=== PATIENT | male | born 1975 | race Caucasian/White ===

== ENCOUNTER 2017-03-28 07:33 | Outpatient (CLI) | payer MEDICARE ==
[~2017-03-28] VITALS: Ht 175.4 cm; Wt 70.5 kg
[~2017-03-28 07:33] MED LIST: ALDACTONE 25MG25 M1 PO; ASPI325T6 PO; CELEBREX 1100 MG/CAP PO; CELEBREX50 MG PO; COREG12.5 MG; FLEXERIL 1010 MG/TAB; HUMALOG100 U/ML SQ; LANOXIN 0.25M0.25 MG PO; LANTUS100 U/ML SC; LASIX 20MG TABL20 MG PO; LEVEMIR100 U/ML SQ; LIORESAL 1010 MG/TAB PO; NEURONTIN600 MG/TAB PO; NORCO 325 MG-101 TAB PO; NOVOLOG 100U100 U/M1 SC; PERC2.5TAB PO; PERCOCET 325 MG1 TA2 PO; PRAVACHOL 20MG20 MG PO; REGLAN 10MG10 MG/TAB; TYLENOL 325MG325 MG PO; ULTRAM 50MG TAB50 MG; ULTRAM 50MG TAB50 MG PO; ZITHROMAX Z PA250 MG PO
[2017-03-28] MEDS ORDERED: HUMALOG100 U/ML SQ (08:12)
[2017-03-28] MEDS ORDERED: RESTORIL30 MG PO (08:16)
[2017-03-28] MEDS ORDERED: IMDUR 60MG60 MG/TAB PO (08:17)
[2017-03-28] MEDS ORDERED: COZAAR 25MG25 MG/TAB PO (08:17)
[2017-03-28 08:18] VITALS: BP 137/80; PULSE 73; TEMP 97.6
[2017-03-28] MEDS ORDERED: COREG 6.256.25 MG/TA PO (08:18)
== END 2017-03-28 12:20 | disposition home or self-care (01) ==
LOC: COL.CAR 07:33
DX: R55 Syncope and collapse (principal); I25.5 Ischemic cardiomyopathy; I25.10 Atherosclerotic heart disease of native coronary artery without angina pectoris; Z95.5 Presence of coronary angioplasty implant and graft; I50.9 Heart failure, unspecified; E10.65 Type 1 diabetes mellitus with hyperglycemia; E10.42 Type 1 diabetes mellitus with diabetic polyneuropathy; Z79.4 Long term (current) use of insulin; G47.33 Obstructive sleep apnea (adult) (pediatric); Q21.1 Atrial septal defect; Z87.898 Personal history of other specified conditions; Z87.891 Personal history of nicotine dependence; E78.5 Hyperlipidemia, unspecified; I10 Essential (primary) hypertension

== ENCOUNTER → 2017-04-01 | Outpatient (CLI) | payer MEDICARE ==
[~2017-04-01] MED LIST changes: +COREG 6.256.25 MG/TA PO; +COZAAR 25MG25 MG/TAB PO; +FLORINEF ACETA0.1 MG PO; +IMDUR 60MG60 MG/TAB PO; +K-DUR20 MEQ PO; +PHENERGAN 25 TA25 MG PO; +PROTONIX 40MG T40 MG PO; +REGLAN 10MG10 MG/TAB PO; +RESTORIL30 MG PO; +ZOFRAN 4MG T4 MG/TAB PO; +ZOLOFT 100MG100 MG PO
== END ==
LOC: COL.RAD 11:59
DX: R55 Syncope and collapse (principal); F32.9 Major depressive disorder, single episode, unspecified
CPT/HCPCS: A9585

== ENCOUNTER 2017-04-14 08:54 | Inpatient (IN) | payer MEDICARE ==
[2017-04-14] VITALS (705 sets, daily range): BP systolic 139–145; BP diastolic 79–86; PULSE 83–89; TEMP 98.4–99.2; O2SAT 83–100
[~2017-04-14] VITALS: Ht 175.3 cm; Wt 75.2 kg
[~2017-04-14 08:54] MED LIST changes: -FLORINEF ACETA0.1 MG PO; -K-DUR20 MEQ PO; -PHENERGAN 25 TA25 MG PO; -PROTONIX 40MG T40 MG PO; -REGLAN 10MG10 MG/TAB PO; -ZOFRAN 4MG T4 MG/TAB PO; -ZOLOFT 100MG100 MG PO
[2017-04-14 09:14] LABS: HEMOGLOBIN 12.1 g/dl (13.5-18.0); MEAN CELL VOLUME 96 fl (80.0-100.0); MEAN CORPUSCULAR HEMOGLOBIN 32 pg (27.0-31.0); MEAN CORPUSCULAR HGB CONC 33 g/dl (33.0-37.0); MEAN PLATELET VOLUME 10.7 fl (7.4-10.4); PLATELET COUNT 354 K/mm3 (130-400); RED BLOOD COUNT 3.83 M/mm3 (4.20-5.60); REDCELL DISTRIBUTION WIDTH-CV 13.3 % (11.5-14.5); WHITE BLOOD COUNT 16.6 K/mm3 (4.8-10.8)
[2017-04-14 09:16] LABS: HEMATOCRIT 36.9 % (42.0-52.0)
[2017-04-14 09:17] LABS: ADD PATHOLOGY DIFF REVIEW NO; INR 1.1 (0.8-3.0); PROTHROMBIN TIME 11.7 SECONDS (9.7-12.8)
[2017-04-14] MEDS ORDERED: ZOLOFT 100MG100 MG PO (09:18)
[2017-04-14] MEDS ORDERED: NORCO 325 MG-101 TAB PO (09:19)
[2017-04-14] MEDS ORDERED: FLORINEF ACETA0.1 MG PO (09:19)
[2017-04-14] MEDS ORDERED: REGLAN 10MG10 MG/TAB PO (09:20)
[2017-04-14 09:56] LABS: ADJUSTED CALCIUM 8.6 mg/dL (8.4-10.2); ALANINE AMINOTRANSFERASE 26 U/L (21-72); ALBUMIN 4.7 gm/dL (3.5-5.0); ALKALINE PHOSPHATASE 127 U/L (50-136); ANION GAP 21 mmol/L (7-16); BILIRUBIN,TOTAL 1.1 mg/dL (0.0-1.0); BLOOD UREA NITROGEN 15 mg/dL (9-20); CALCIUM 9.2 mg/dL (8.4-10.2); CHLORIDE 104 mmol/L (98-107); CREATININE, serum 0.72 mg/dL (0.66-1.25); GLUCOSE 156 mg/dL (74-106); POTASSIUM 4.2 mmol/L (3.4-5.0); SODIUM 139 mmol/L (137-145); TOTAL PROTEIN 7.8 gm/dL (6.4-8.2)
[2017-04-14 09:57] LABS: BAND 6 % (0-10); CARBON DIOXIDE 13 mmol/L (22-30); NEUTROPHILS 76 % (42.0-75.2); PLATELET ESTIMATE INCREASED (NORMAL); TOTAL CELLS COUNTED 100
[2017-04-14 10:05] LABS: LIPASE 15 U/L (23-300)
[2017-04-14 10:09] LABS: TROPONIN-I < 0.012 ng/mL (0.000-0.034)
[2017-04-14 10:30] LABS: VENOUS BLOOD GAS BE -13.2 (-4-4); VENOUS BLOOD GAS SAO2 75.8 % (60-80)
[2017-04-14 10:31] LABS: VENOUS BLOOD GAS SITE VENIPUNCTURE
[2017-04-14 11:18] LABS: PH 5 (5-8); SQUAMOUS EPITHELIAL None Seen /hpf; URINE APPEARANCE Clear; URINE BACTERIA None Seen /hpf; URINE BILIRUBIN Negative (NEGATIVE); URINE BLOOD Negative (NEGATIVE); URINE COLOR Yellow; URINE GLUCOSE 3+ (NEGATIVE); URINE KETONE 2+ (NEGATIVE); URINE RBC 0-2 /hpf; URINE UROBILINOGEN Negative (NEGATIVE); URINE WBC 0-2 /hpf
[2017-04-14 17:33] LABS: ARTERIAL BLD GAS O2 SATURATION 96.4 % (92-100); ARTERIAL BLD GAS TCO2 CT 11.2; ARTERIAL BLOOD GAS BASE EXCESS -15.5 (-2-2); ARTERIAL BLOOD GAS HCO3 10.4 meq/L (22-26); ARTERIAL BLOOD GAS PHT 7.23 C (7.35-7.45); ARTERIAL BLOOD GAS PO2 100.6 mmHg (80-100); ARTERIAL BLOOD GAS PO2T 100.6 (80-100); ARTERIAL BLOOD GAS pH 7.23 (7.35-7.45)
[2017-04-14 17:34] LABS: ATS? YES
[2017-04-15] VITALS (624 sets, daily range): BP systolic 95–184; BP diastolic 50–94; PULSE 71–87; TEMP 97.3–98.8; O2SAT 91–100
[2017-04-15 00:23] LABS: CREATININE, serum 0.65 mg/dL (0.66-1.25)
[2017-04-15 05:39] LABS: MEAN CELL VOLUME 98 fl (80.0-100.0); MEAN CORPUSCULAR HGB CONC 32 g/dl (33.0-37.0); MEAN PLATELET VOLUME 10.5 fl (7.4-10.4); PLATELET COUNT 300 K/mm3 (130-400); RED BLOOD COUNT 3.54 M/mm3 (4.20-5.60); REDCELL DISTRIBUTION WIDTH-CV 13.9 % (11.5-14.5); WHITE BLOOD COUNT 11.8 K/mm3 (4.8-10.8)
[2017-04-15 05:44] LABS: HEMATOCRIT 34.6 % (42.0-52.0); HEMOGLOBIN 11.1 g/dl (13.5-18.0); MEAN CORPUSCULAR HEMOGLOBIN 31 pg (27.0-31.0)
[2017-04-15 05:47] LABS: ADJUSTED CALCIUM 8.7 mg/dL (8.4-10.2); ALBUMIN 3.4 gm/dL (3.5-5.0); BILIRUBIN,TOTAL 0.9 mg/dL (0.0-1.0); CALCIUM 8.2 mg/dL (8.4-10.2); CREATININE, serum 0.58 mg/dL (0.66-1.25); POTASSIUM 3.9 mmol/L (3.4-5.0); TOTAL PROTEIN 5.9 gm/dL (6.4-8.2)
[2017-04-16 03:36] VITALS: BP 161/99; PULSE 84; TEMP 98.4
[2017-04-16 07:40] VITALS: BP 128/68; PULSE 81; TEMP 98.1
[2017-04-16 08:14] LABS: BASO % 0.2 % (0.0-2.0); GRAN # 7.5 (1.4-6.5); GRAN % 79.3 % (42.2-75.2); LYMPH # 1.2 (1.2-3.4); LYMPH % 12.2 % (20.0-51.0); MEAN CELL VOLUME 95 fl (80.0-100.0); MEAN CORPUSCULAR HGB CONC 33 g/dl (33.0-37.0); MEAN PLATELET VOLUME 11.3 fl (7.4-10.4); MONO # 0.7 (0.1-0.6); MONO % 7.1 % (1.7-9.3); PLATELET COUNT 264 K/mm3 (130-400); RED BLOOD COUNT 3.28 M/mm3 (4.20-5.60); REDCELL DISTRIBUTION WIDTH-CV 14.2 % (11.5-14.5); WHITE BLOOD COUNT 9.4 K/mm3 (4.8-10.8)
[2017-04-16 08:21] LABS: CALCIUM 7.9 mg/dL (8.4-10.2); CREATININE, serum 0.53 mg/dL (0.66-1.25); MAGNESIUM 1.8 mg/dL (1.6-2.3); POTASSIUM 3.2 mmol/L (3.4-5.0)
[2017-04-16 08:28] LABS: HEMATOCRIT 31.3 % (42.0-52.0); HEMOGLOBIN 10.3 g/dl (13.5-18.0); MEAN CORPUSCULAR HEMOGLOBIN 31 pg (27.0-31.0)
[2017-04-16 11:34] VITALS: BP 179/92; PULSE 81; TEMP 97.2
[2017-04-16 16:26] VITALS: BP 134/69; PULSE 72; TEMP 98.1
[2017-04-16 20:46] VITALS: BP 123/71; PULSE 69; TEMP 98.7
[2017-04-16 23:56] VITALS: BP 145/78; PULSE 65; TEMP 98.2
[2017-04-17 05:16] VITALS: BP 171/90; PULSE 72; TEMP 98.6
[2017-04-17 08:06] VITALS: BP 145/73; PULSE 72; TEMP 99
[2017-04-17 08:16] LABS: BASO % 0.2 % (0.0-2.0); EOS # 0.1 (0.0-0.7); EOS % 1.3 % (0-4.0); GRAN # 6.7 (1.4-6.5); GRAN % 67.7 % (42.2-75.2); LYMPH % 19.9 % (20.0-51.0); MEAN CELL VOLUME 95 fl (80.0-100.0); MEAN CORPUSCULAR HGB CONC 33 g/dl (33.0-37.0); MEAN PLATELET VOLUME 11.1 fl (7.4-10.4); MONO % 10.1 % (1.7-9.3); PLATELET COUNT 242 K/mm3 (130-400); RED BLOOD COUNT 3.27 M/mm3 (4.20-5.60); REDCELL DISTRIBUTION WIDTH-CV 14.1 % (11.5-14.5); WHITE BLOOD COUNT 9.9 K/mm3 (4.8-10.8)
[2017-04-17 08:28] LABS: HEMOGLOBIN 10.3 g/dl (13.5-18.0); MEAN CORPUSCULAR HEMOGLOBIN 31 pg (27.0-31.0)
[2017-04-17 08:43] LABS: CALCIUM 7.7 mg/dL (8.4-10.2); CREATININE, serum 0.55 mg/dL (0.66-1.25); POTASSIUM 3.2 mmol/L (3.4-5.0)
[2017-04-17 11:05] VITALS: BP 140/68; PULSE 68; TEMP 97.7
[2017-04-17 15:20] VITALS: BP 161/71; PULSE 70; TEMP 98.4
[2017-04-17 20:04] VITALS: BP 178/88; BP 182/90; PULSE 71; TEMP 98.8
[2017-04-17 23:32] VITALS: BP 106/50; PULSE 72; TEMP 99.3
[2017-04-18 03:35] VITALS: BP 136/77; PULSE 64; TEMP 98.7
[2017-04-18 07:23] LABS: CALCIUM 8.4 mg/dL (8.4-10.2); CREATININE, serum 0.55 mg/dL (0.66-1.25); POTASSIUM 3.1 mmol/L (3.4-5.0)
[2017-04-18 07:32] VITALS: BP 157/79; PULSE 74; TEMP 99
[2017-04-18] MEDS ORDERED: LEVEMIR100 U/ML SQ (10:35)
[2017-04-18] MEDS ORDERED: ZOFRAN 4MG T4 MG/TAB PO (10:36)
[2017-04-18] MEDS ORDERED: PHENERGAN 25 TA25 MG PO (10:36)
[2017-04-18] MEDS ORDERED: ZITHROMAX Z PA250 MG PO (10:37)
[2017-04-18] MEDS ORDERED: K-DUR20 MEQ PO (10:38)
[2017-04-18] MEDS ORDERED: PROTONIX 40MG T40 MG PO (10:41)
== END 2017-04-18 11:23 | disposition home or self-care (01) | DRG 391 ==
LOC: COL.ER 08:54 → ICU 10:40 → MEDICAL 10:40
PROVIDERS: Emergency Medicine; Family Medicine; Internal Medicine Cardiovascular Disease; Internal Medicine Gastroenterology; Physician Assistant
PROC: 0DJ08ZZ Inspection of Upper Intestinal Tract, Via Natural or Artificial Opening Endoscopic (ICD-10-PCS; principal; 2017-04-15 14:45)
DX: K52.9 Noninfective gastroenteritis and colitis, unspecified (principal); J18.9 Pneumonia, unspecified organism; I50.32 Chronic diastolic (congestive) heart failure; E87.6 Hypokalemia; K29.70 Gastritis, unspecified, without bleeding; E10.65 Type 1 diabetes mellitus with hyperglycemia; E10.42 Type 1 diabetes mellitus with diabetic polyneuropathy; I11.0 Hypertensive heart disease with heart failure; Z95.1 Presence of aortocoronary bypass graft; Z79.4 Long term (current) use of insulin; Z87.891 Personal history of nicotine dependence; I25.119 Atherosclerotic heart disease of native coronary artery with unspecified angina pectoris; K21.9 Gastro-esophageal reflux disease without esophagitis
CPT/HCPCS: 99223-AI; 99232-AI; 99233-AI; 99239; A9541; C9113; J0360; J1644; J1815; J2250; J2270; J2405; J2550; J2704; J2765; J3010; J3480; J7030; Q9967

== ENCOUNTER 2018-03-19 14:10 | Emergency (ER) | payer MEDICARE ==
[~2018-03-19] VITALS: Ht 175.3 cm; Wt 75.0 kg
[~2018-03-19 14:10] MED LIST changes: +Bentyl PO; +COREG12.5 MG PO; +COZAAR 50MG50 MG/TAB PO; +FLORINEF ACETA0.1 MG PO; +K-DUR20 MEQ PO; +NOVOLOG 100U100 U/M1 SQ; +PHENERGAN 25 TA25 MG PO; +PROTONIX 40MG T40 MG PO; +REGLAN 10MG10 MG/TAB PO; +ZOFRAN 4MG T4 MG/TAB PO; +ZOLOFT 100MG100 MG PO
[2018-03-19 14:13] VITALS: BP 94/55; PULSE 77; TEMP 97.6
[2018-03-19] MEDS ORDERED: LEVEMIR100 U/ML SQ (14:26)
[2018-03-19] MEDS ORDERED: NOVOLOG 100U100 U/M1 SQ (14:27)
[2018-03-19] MEDS ORDERED: COREG 6.256.25 MG/TA PO (14:28)
[2018-03-19] MEDS ORDERED: ALDACTONE 25MG25 M1 PO (14:30)
== END 2018-03-19 15:42 | disposition home or self-care (01) ==
LOC: COL.ER 14:10
DX: S09.90XA Unspecified injury of head, initial encounter (principal); S80.11XA Contusion of right lower leg, initial encounter; R40.2412 Glasgow coma scale score 13-15, at arrival to emergency department; J44.9 Chronic obstructive pulmonary disease, unspecified; Z87.891 Personal history of nicotine dependence; Z95.1 Presence of aortocoronary bypass graft; Z79.82 Long term (current) use of aspirin; W18.39XA Other fall on same level, initial encounter; W22.8XXA Striking against or struck by other objects, initial encounter; Y92.002 Bathroom of unspecified non-institutional (private) residence as the place of occurrence of the external cause

== ENCOUNTER 2019-04-01 23:39 | Emergency (ER) | payer MEDICARE ==
[~2019-04-01] VITALS: Ht 175.3 cm; Wt 75.0 kg
[~2019-04-01 23:39] MED LIST changes: +CLEOCIN HCL300 MG PO; +DESYREL 50MG50 MG PO
[2019-04-01 23:53] VITALS: BP 179/88; TEMP 97.9
[2019-04-02 01:14] VITALS: PULSE 89
== END 2019-04-02 01:15 | disposition home or self-care (01) ==
LOC: COL.ER 23:39
DX: T82.838A Hemorrhage due to vascular prosthetic devices, implants and grafts, initial encounter (principal); E11.9 Type 2 diabetes mellitus without complications; Z79.82 Long term (current) use of aspirin; Z79.4 Long term (current) use of insulin

== ENCOUNTER 2019-04-15 13:20 | Emergency (ER) | payer MEDICARE ==
[~2019-04-15] VITALS: Ht 175.3 cm; Wt 75.0 kg
[2019-04-15 13:24] VITALS: BP 133/74
[2019-04-15] MEDS ORDERED: LEVEMIR100 U/ML SQ (13:46)
[2019-04-15 15:27] VITALS: PULSE 72; TEMP 97.4
== END 2019-04-15 15:27 | disposition home or self-care (01) ==
LOC: COL.ER 13:20
DX: S83.92XA Sprain of unspecified site of left knee, initial encounter (principal); F51.3 Sleepwalking [somnambulism]; I25.10 Atherosclerotic heart disease of native coronary artery without angina pectoris; I11.0 Hypertensive heart disease with heart failure; I50.9 Heart failure, unspecified; E11.40 Type 2 diabetes mellitus with diabetic neuropathy, unspecified; F17.210 Nicotine dependence, cigarettes, uncomplicated; Z79.4 Long term (current) use of insulin; Z88.0 Allergy status to penicillin; Z95.1 Presence of aortocoronary bypass graft; W19.XXXA Unspecified fall, initial encounter; Y92.009 Unspecified place in unspecified non-institutional (private) residence as the place of occurrence of the external cause

== ENCOUNTER 2019-07-11 19:33 | Inpatient (IN) | payer MEDICARE ==
[~2019-07-11] VITALS: Ht 175.3 cm; Wt 72.8 kg
[2019-07-11 20:12] LABS: BASO % 0.3 % (0.0-2.0); EOS # 0.3 (0.0-0.7); EOS % 2.5 % (0-4.0); GRAN # 7.3 (1.4-6.5); GRAN % 70.1 % (42.2-75.2); LYMPH # 1.8 (1.2-3.4); LYMPH % 17.6 % (20.0-51.0); MEAN CELL VOLUME 96 fl (80.0-100.0); MEAN CORPUSCULAR HEMOGLOBIN 31 pg (27.0-31.0); MEAN CORPUSCULAR HGB CONC 32 g/dl (33.0-37.0); MEAN PLATELET VOLUME 11.2 fl (7.4-10.4); MONO # 0.9 (0.1-0.6); MONO % 9.1 % (1.7-9.3); PLATELET COUNT 179 K/mm3 (130-400); RED BLOOD COUNT 3.54 M/mm3 (4.20-5.60); REDCELL DISTRIBUTION WIDTH-CV 13.2 % (11.5-14.5)
[2019-07-11 20:29] LABS: ALANINE AMINOTRANSFERASE 8 U/L (21-72); ALBUMIN 3.8 gm/dL (3.5-5.0); ALKALINE PHOSPHATASE 156 U/L (50-136); ANION GAP 12 mmol/L (7-16); AST,SGOT 16 U/L (15-37); BILIRUBIN,TOTAL 0.7 mg/dL (0.0-1.0); BLOOD UREA NITROGEN 23 mg/dL (9-20); CARBON DIOXIDE 27 mmol/L (22-30); CHLORIDE 95 mmol/L (98-107); GLUCOSE 389 mg/dL (74-106); POTASSIUM 4.7 mmol/L (3.4-5.0); SODIUM 134 mmol/L (137-145); TOTAL PROTEIN 6.5 gm/dL (6.4-8.2)
[2019-07-11] MEDS ORDERED: PROTONIX20 MG PO (20:29)
[2019-07-11 20:35] LABS: HEMATOCRIT 33.9 % (42.0-52.0)
[2019-07-11 20:42] LABS: TROPONIN-I < 0.012 ng/mL (0.000-0.035)
[2019-07-12] VITALS (979 sets, daily range): BP systolic 110–168; BP diastolic 58–86; PULSE 63–80; TEMP 97.5–99.4; O2SAT 85–100
[2019-07-12 02:36] LABS: MAGNESIUM 1.8 mg/dL (1.6-2.3)
[2019-07-12 02:50] LABS: INR 0.9 (0.8-3.0); PROTHROMBIN TIME 10.6 SECONDS (9.7-12.8)
[2019-07-12 02:53] LABS: PRE ALBUMIN 20.8 mg/dL (17.6-36.0)
[2019-07-12 03:07] LABS: THYROID STIMULATING HORMONE 1.85 uIU/mL (0.465-4.680)
[2019-07-12] MEDS ORDERED: NEURONTIN300 MG/CAP PO ×2 (03:24)
[2019-07-12] MEDS ORDERED: IMDUR 30MG30 MG/TAB PO (03:25)
[2019-07-12 04:48] LABS: ARTERIAL BLD GAS O2 SATURATION 97.5 % (92-100); ARTERIAL BLD GAS TCO2 CT 25.7; ARTERIAL BLOOD GAS BASE EXCESS -2.8 (-2-2); ARTERIAL BLOOD GAS HCO3 24.1 meq/L (22-26); ARTERIAL BLOOD GAS PCO2 51.1 mmHg (35-45); ARTERIAL BLOOD GAS pH 7.29 (7.35-7.45)
[2019-07-12 04:49] LABS: ARTERIAL BLOOD GAS PO2 129.8 mmHg (80-100)
[2019-07-12 05:45] LABS: COLLECTION METHOD CLEAN CATCH
[2019-07-12 05:47] LABS: BASO % 0.3 % (0.0-2.0); EOS # 0.4 (0.0-0.7); GRAN % 72.2 % (42.2-75.2); HEMOGLOBIN 11.6 g/dl (13.5-18.0); LYMPH # 1.3 (1.2-3.4); LYMPH % 13.4 % (20.0-51.0); MEAN CELL VOLUME 97 fl (80.0-100.0); MEAN CORPUSCULAR HEMOGLOBIN 32 pg (27.0-31.0); MEAN CORPUSCULAR HGB CONC 33 g/dl (33.0-37.0); MEAN PLATELET VOLUME 11.1 fl (7.4-10.4); MONO # 0.9 (0.1-0.6); MONO % 9.7 % (1.7-9.3); PLATELET COUNT 174 K/mm3 (130-400); RED BLOOD COUNT 3.66 M/mm3 (4.20-5.60); REDCELL DISTRIBUTION WIDTH-CV 13.3 % (11.5-14.5)
[2019-07-12 05:58] LABS: HEMATOCRIT 35.6 % (42.0-52.0)
[2019-07-12 06:01] LABS: ALANINE AMINOTRANSFERASE < 6 U/L (21-72); ALBUMIN 3.9 gm/dL (3.5-5.0); ALKALINE PHOSPHATASE 166 U/L (50-136); ANION GAP 15 mmol/L (7-16); AST,SGOT 16 U/L (15-37); BILIRUBIN,TOTAL 0.8 mg/dL (0.0-1.0); BLOOD UREA NITROGEN 24 mg/dL (9-20); CALCIUM 8.7 mg/dL (8.4-10.2); CARBON DIOXIDE 26 mmol/L (22-30); CHLORIDE 100 mmol/L (98-107); CREATININE, serum 0.83 (0.66-1.25); POTASSIUM 4.4 mmol/L (3.4-5.0); SODIUM 141 mmol/L (137-145); TOTAL PROTEIN 6.6 gm/dL (6.4-8.2)
[2019-07-12 06:03] LABS: GLUCOSE 409 mg/dL (74-106)
[2019-07-12 06:07] LABS: MUCOUS Present /lpf; PH 5 (5-8); SQUAMOUS EPITHELIAL None Seen /hpf; URINE APPEARANCE Clear; URINE BACTERIA None Seen /hpf; URINE BILIRUBIN Negative (NEGATIVE); URINE BLOOD Negative (NEGATIVE); URINE COLOR Yellow; URINE GLUCOSE 3+ (NEGATIVE); URINE KETONE 1+ (NEGATIVE); URINE LEUKOCYTE ESTERASE Negative (NEGATIVE); URINE NITRATE Negative (NEGATIVE); URINE PROTEIN(semi-quant) Negative (NEGATIVE); URINE RBC 0-2 /hpf; URINE UROBILINOGEN Negative (NEGATIVE)
[2019-07-12 06:32] LABS: ARTERIAL BLOOD GAS HCO3 27.1 meq/L (22-26); ARTERIAL BLOOD GAS PCO2 50.3 mmHg (35-45); ARTERIAL BLOOD GAS PO2 105.9 mmHg (80-100); ARTERIAL BLOOD GAS pH 7.35 (7.35-7.45)
[2019-07-12 06:33] LABS: ARTERIAL BLD GAS O2 SATURATION 96.8 % (92-100); ARTERIAL BLD GAS TCO2 CT 28.7
[2019-07-12 06:48] LABS: ARTERIAL BLD GAS O2 SATURATION 95.4 % (92-100); ARTERIAL BLD GAS TCO2 CT 28.5; ARTERIAL BLOOD GAS BASE EXCESS 0.1 (-2-2); ARTERIAL BLOOD GAS HCO3 26.8 meq/L (22-26); ARTERIAL BLOOD GAS PCO2 52.9 mmHg (35-45); ARTERIAL BLOOD GAS PO2 88.9 mmHg (80-100); ARTERIAL BLOOD GAS pH 7.32 (7.35-7.45)
--- NOTE | 2019-07-12 10:30 | NUR ---
SUSIE, HEALTH PROMOTER PA FOR ORTHO, NOTIFIED OF CONSULT.
--- NOTE | 2019-07-12 10:31 | NUR ---
MODESTA PERFORMING ECHO AT THIS TIME.
--- NOTE | 2019-07-12 13:34 | NUR ---
ORQUIDEA GARVEY, ABLE TO OBTAIN STRESS TEST RESULTS FROM [facility]. STRESS TEST NEGATIVE. DR HERNANDEZ NOTIFIED AND STATES PT IS CLEARED FOR SURGERY. GURU NOTIFIED. PT BEING TAKEN IN NEXT COUPLE OF HOURS PER ORQUIDEA GARVEY.
--- NOTE | 2019-07-12 16:00 | NUR ---
Assumed care of patient from Teresa DARNELL. Patient resting in bed with mom at bedside
--- NOTE | 2019-07-12 20:00 | NUR ---
Report given to Cleo DARNELL
--- NOTE | 2019-07-12 21:30 | NUR ---
Shift assessment complete. Patient in bed, awake. States pain is "11." Prn pain medication given. States, morphine and norco are not controlling his pain, but he knows the day shift nurse called the doctor earlier, and would not order fentanyl. Patient ok with pain management plan for now. Refusing SCD's/FLAKITA hose. Also refused ice pack. Denies further needs at this time. Will continue to monitor.
[2019-07-13] VITALS (820 sets, daily range): BP systolic 116–162; BP diastolic 62–103; PULSE 64–84; TEMP 97.6–99.2; O2SAT 89–100
--- NOTE | 2019-07-13 00:50 | NUR ---
Temp 99.2. Patient reminded to use IS/C&DB. States, he will use his IS. Will continue to monitor.
--- NOTE | 2019-07-13 05:30 | NUR ---
Patient in bed, awake. States, pain 9/10. Prn pain medication given. Denies further needs at this time. Will continue to monitor.
[2019-07-13 06:08] LABS: ARTERIAL BLD GAS O2 SATURATION 94.4 % (92-100); ARTERIAL BLD GAS TCO2 CT 28.1; ARTERIAL BLOOD GAS BASE EXCESS 2.1 (-2-2); ARTERIAL BLOOD GAS HCO3 26.8 meq/L (22-26); ARTERIAL BLOOD GAS PCO2 42.5 mmHg (35-45); ARTERIAL BLOOD GAS PO2 76.1 mmHg (80-100); ARTERIAL BLOOD GAS pH 7.42 (7.35-7.45)
[2019-07-13 06:16] LABS: BASO % 0.3 % (0.0-2.0); EOS # 0.5 (0.0-0.7); EOS % 4.2 % (0-4.0); GRAN # 7.3 (1.4-6.5); GRAN % 67.8 % (42.2-75.2); HEMOGLOBIN 10.5 g/dl (13.5-18.0); LYMPH # 2.1 (1.2-3.4); LYMPH % 19.3 % (20.0-51.0); MEAN CELL VOLUME 97 fl (80.0-100.0); MEAN CORPUSCULAR HEMOGLOBIN 32 pg (27.0-31.0); MEAN CORPUSCULAR HGB CONC 33 g/dl (33.0-37.0); MEAN PLATELET VOLUME 11.7 fl (7.4-10.4); MONO # 0.9 (0.1-0.6); MONO % 8.2 % (1.7-9.3); PLATELET COUNT 151 K/mm3 (130-400); RED BLOOD COUNT 3.27 M/mm3 (4.20-5.60); REDCELL DISTRIBUTION WIDTH-CV 13.2 % (11.5-14.5)
[2019-07-13 06:18] LABS: HEMATOCRIT 31.8 % (42.0-52.0)
[2019-07-13 06:34] LABS: ALBUMIN 3.5 gm/dL (3.5-5.0); BILIRUBIN,TOTAL 1.2 mg/dL (0.0-1.0); CALCIUM 8.6 mg/dL (8.4-10.2); CREATININE, serum 0.47 (0.66-1.25); TOTAL PROTEIN 6.1 gm/dL (6.4-8.2)
--- NOTE | 2019-07-13 07:00 | NUR ---
BEDSIDE REPORT RECEIVED FROM CARIE LAO.
--- NOTE | 2019-07-13 12:14 | NUR ---
Initial visit attempt; Patient out of room, Butt Trimmer introduced herself to patient's , letting her know of the availability of spiritual care offered at [facility].
--- NOTE | 2019-07-13 12:55 | NUR ---
Patient leaves for OR at this time.
--- NOTE | 2019-07-13 17:15 | NUR ---
PATIENT BACK FROM OR. HE IS DROWSY, BUT WAKES, EASILY. CARE TAKEN OVER.
--- NOTE | 2019-07-13 18:30 | NUR ---
Patient continues to sleep with no evidence of distress. He woke up while I assessed him earlier and said "do not wake me up if i am sleeping." Left leg is dressed and splinted, up on pillows. Patient assisted to right side at 1730. He is currently sleeping. Will continue to monitor.
--- NOTE | 2019-07-13 19:15 | NUR ---
BEDSIDE REPORT GIVEN TO CARIE DEL REAL. PATIENT AWAKE AND C/O PAIN TO BACK AND LEFT KNEE. HE IS UNABLE TO FEEL WHEN I TOUCH HIS TOES. CMS WNL. CARE TURNED OVER AT THIS TIME.
--- NOTE | 2019-07-13 21:51 | NUR ---
Pt resting in bed, c/o 5/10 pain, Narco was given with no relief. Morphine 2mg given for breakthru pain and pt currently able to rest. He states however the morphine does nothing. Pt recieved 2 sandwiches for dinner. A/O x 3, lungs clear on 1L NC and states he will not be sleeping with it on. SPO2 was 98% prior to removal of O2 and is currently 95% on room air. VSS. Pt starting to feel pain and sensation throughout Left leg and able wiggle toes slightly, unable to palpate pulse but cap refill remain<3 sec and color still pink. Will continue to moniotr pt status and update providers as needed.
[2019-07-14] VITALS (935 sets, daily range): BP systolic 97–140; BP diastolic 48–75; PULSE 70–82; TEMP 97.7–99.5; O2SAT 85–100
[2019-07-14 05:23] LABS: BASO % 0.4 % (0.0-2.0); EOS # 0.3 (0.0-0.7); EOS % 3.4 % (0-4.0); GRAN # 7.7 (1.4-6.5); GRAN % 76.9 % (42.2-75.2); LYMPH # 1.3 (1.2-3.4); LYMPH % 12.8 % (20.0-51.0); MEAN CELL VOLUME 98 fl (80.0-100.0); MEAN CORPUSCULAR HGB CONC 32 g/dl (33.0-37.0); MEAN PLATELET VOLUME 10.6 fl (7.4-10.4); MONO # 0.6 (0.1-0.6); MONO % 5.9 % (1.7-9.3); PLATELET COUNT 147 K/mm3 (130-400); RED BLOOD COUNT 2.72 M/mm3 (4.20-5.60); REDCELL DISTRIBUTION WIDTH-CV 13.1 % (11.5-14.5)
[2019-07-14 05:30] LABS: HEMATOCRIT 26.7 % (42.0-52.0); HEMOGLOBIN 8.4 g/dl (13.5-18.0); MEAN CORPUSCULAR HEMOGLOBIN 31 pg (27.0-31.0)
[2019-07-14 05:39] LABS: CREATININE, serum 0.55 (0.66-1.25)
--- NOTE | 2019-07-14 08:00 | NUR ---
Shift assessment complete at this time. Plan of care reviewed at bedside with patient. Additional time taken to address any other needs or concerns. Vitals stable at this time. Reports 10 undescribable pain in LLE. See EMAR for medication administrations. Denies any other discomforts or concerns. Bed in low position, call light within reach. Will continue to monitor.
--- NOTE | 2019-07-14 10:24 | NUR ---
Initial Visit; Patient declined spiritual care at this time.
--- NOTE | 2019-07-14 12:00 | NUR ---
Pt resting in bed. Reports pain as mildly improved overall. Pain is still unable to be described in his LLE. Vitals stable at this time. See EMAR for pain medication administration. Pt denies any other complaints or concerns. Bed in low position, call light within reach. Will continue to monitor.
--- NOTE | 2019-07-14 16:00 | NUR ---
Pt resting in bed. Reports pain as overall improving. Will administer PRN Tramadol when available. Denies any other discomforts. Bed in low position, call light within reach, will continue to monitor.
--- NOTE | 2019-07-14 17:32 | NUR ---
SW met with patient to discuss discharge planning. Patient lives independently at home with his mother, Alcira. Patient's PCP is Aura Pérez at the [facility] and he obtains prescriptions from [facility] in [place]. Patient denies difficulties obtaining or paying for medications. Patient does not use any DME or home health services. Patient does have a walker, crutches, and cane at home but he does not normally use those items. Patient is independent with all ADLs. Patient does not have a DPOA-HC but would like to complete one. SW provided DPOA paperwork. SW and nurse witnessed patient's signature. Patient designated his mother, Alcira, to be his DPOA-HC. SW provided patient with the original and extra copies. Jass will be seen by PT/OT for eval prior to discharge. SW will continue to follow and assist with discharge needs.
--- NOTE | 2019-07-14 19:00 | NUR ---
RECEIVED REPORT FROM CARIE MORENO.
--- NOTE | 2019-07-14 19:26 | NUR ---
Bedside report given to CARIE Hagan.
--- NOTE | 2019-07-14 19:30 | NUR ---
PATIENT REQUESTS TO BE UNDISTURBED MUCH POSSIBLE THROUGHOUT NOC. PATIENT WAS ASKED IF HE WOULD LIKE TO BE WOKEN FOR PAIN MEDICATION WHEN AVAILABLE AND REQUESTED THAT HE WOULD RATHER CALL FOR MEDICATION NEEDED.
--- NOTE | 2019-07-14 19:30 | NUR ---
RECEIVED REPORT FROM CARIE HARERLL.
[2019-07-15] VITALS (456 sets, daily range): BP systolic 106–139; BP diastolic 64–75; PULSE 71–80; TEMP 97.7–98.2; O2SAT 85–100
--- NOTE | 2019-07-15 00:31 | NUR ---
PATIENT GIVEN 5MG TAB OXYCODONE FOR BACK/LEG PAIN 8/10 AT 2100. ORDER CALLS FOR 5-10MG EVERY SIX HOURS. PATIENT GIVEN SECOND 5MG TAB AT 2351 FOR UNRELIEVED PAIN RATED 8/10.
[2019-07-15 05:18] LABS: BASO % 0.4 % (0.0-2.0); EOS # 0.4 (0.0-0.7); EOS % 7.4 % (0-4.0); GRAN # 3.5 (1.4-6.5); GRAN % 62.7 % (42.2-75.2); LYMPH # 1.1 (1.2-3.4); LYMPH % 20.6 % (20.0-51.0); MEAN CELL VOLUME 96 fl (80.0-100.0); MEAN CORPUSCULAR HGB CONC 32 g/dl (33.0-37.0); MEAN PLATELET VOLUME 10.7 fl (7.4-10.4); MONO # 0.5 (0.1-0.6); MONO % 8.5 % (1.7-9.3); PLATELET COUNT 153 K/mm3 (130-400); RED BLOOD COUNT 2.66 M/mm3 (4.20-5.60)
[2019-07-15 05:19] LABS: HEMATOCRIT 25.6 % (42.0-52.0); HEMOGLOBIN 8.3 g/dl (13.5-18.0); MEAN CORPUSCULAR HEMOGLOBIN 31 pg (27.0-31.0)
[2019-07-15 05:31] LABS: CALCIUM 8.6 mg/dL (8.4-10.2); CREATININE, serum 0.57 (0.66-1.25); POTASSIUM 3.6 mmol/L (3.4-5.0)
--- NOTE | 2019-07-15 07:07 | NUR ---
CALLED REPORT TO CARIE WEBB.
--- NOTE | 2019-07-15 07:56 | NUR ---
PATIENT TRANSFERRED TO SURGICAL ROOM 347. PATIENT PIVOT-TRANSFERRED INTO RECLINER. MADE CONTACT WITH RECEIVING NURSE, JON. PATIENT HAD PREVIOUSLY ORDERED BREAKFAST WHILE ON ICU FLOOR, HOWEVER, WHEN THE TRAY ARRIVED, PATIENT REQUESTED SALT. PATIENT IS ON A HEART HEALTHY DIET SO SALT WAS NOT PROVIDED. PATIENT WAS ASKED IF HE WOULD LIKE TO ORDER A DIFFERENT TRAY AND RESPONDED WITH, "I CAN'T EAT ANYTHING THAT DOESN'T HAVE SALT ON IT." PATIENT DID NOT ORDER ANOTHER BREAKFAST TRAY. CARIE WEBB, WAS NOTIFED.
--- NOTE | 2019-07-15 10:24 | NUR ---
Pt up to room 347. Hospitalist aware of pt arrival. Pt refused to eat per retail shift manager ICU nurse and then refused to this nurse as well because he is on a heart healthy diet and "needs to salt his food". Pt did end up eating a sandwich and salad. Denies SOB, on room air. LAC INT IV is patent, some drainage from bending arm, will monitor. Denies chest pain, dizziness, N/V. C/O pain in left leg, rating in 08/11, see MAR per med administration. Med rec and allergies reviewed with patient. Good cap refil in left toes, soft cast on left leg. No other concerns at this time.
--- NOTE | 2019-07-15 11:11 | NUR ---
Discussed with patient about wearing FLAKITA hose on right leg, using incentive spirometer and bowel regimen. Pt refuses all cares, states he "will not wear the FLAKITA hose or use the spirometer". Per pt last bowel movement was "in the ICU, not sure when".
--- NOTE | 2019-07-15 13:06 | NUR ---
Pt administered pain medication PRN per JAN. rates pain at 8/10. Pt ordered soup for lunch and states it "tastes like piss water and should be thrown in the trash". Pt wants diet changed so that he can have salt. Hospitalist aware of pt concerns. Tray removed, patient stated he would order something else after "he looked". No other concerns at this time.
--- NOTE | 2019-07-15 13:49 | NUR ---
Physical therapy is recommending home with family support. SW met with the pt to discuss recommendation. Patient is okay with going home with family support; pt lives with his mom. SW will continue to follow.
--- NOTE | 2019-07-15 17:58 | NUR ---
Pt receiving pain medication per JAN. Ate sandwich, which he stated he "didn't like". No other needs at this time.
--- NOTE | 2019-07-15 18:59 | NUR ---
Pt sitting in bed on phone at shift change. Report given to CARIE Ruth. Pt has refused IS, FLAKITA michaele, bowel regimen and is unhappy with diet being heart healthy. Insists he "needs salt to eat". Pt has had lunch and dinner. No other concerns at this time.
--- NOTE | 2019-07-15 19:10 | NUR ---
Report received from CARIE Manley
--- NOTE | 2019-07-15 21:09 | NUR ---
Resting in bed. Assessment complete. Lungs clear. Heart sounds normal. Bowels active x4. Pulses strong throughout. Cast present to left lower leg. CMS normal. No edema noted. INT left AC leaking when flushed. Changed to right hand at this time. Rating pain in left leg and back 8/10. Provided with PRN oxycodone. Requesting sandwich. Provided to patient. Denies other needs. Call light in reach.
[2019-07-16 00:19] VITALS: BP 122/64; PULSE 73; TEMP 98.4
--- NOTE | 2019-07-16 00:53 | NUR ---
Reports 8/10 pain. Provided with MARY ANNE mahoney
--- NOTE | 2019-07-16 03:37 | NUR ---
Rating pain "8.5/10" Provided with PRN oxycodone. Denies other needs. Call light in reach.
[2019-07-16 04:11] VITALS: BP 130/71; PULSE 74; TEMP 97.9
--- NOTE | 2019-07-16 05:39 | NUR ---
Patient required pain control throughout night alternating with PRN norco and oxycodone as ordered. Patient pain remained from 4-8 on pain scale. Refused CDB, FLAKITA hose, SCD, and bowel regimen. INT replaced from left AC to right hand last night. Otherwise uneventful evening. Resting in bed this AM. Call light in reach.
--- NOTE | 2019-07-16 07:05 | NUR ---
Report given to CARIE Novak
[2019-07-16 08:57] VITALS: BP 118/69; PULSE 73; TEMP 97.6
[2019-07-16] MEDS ORDERED: ASPIRIN 32325 MG/TAB PO (10:13)
[2019-07-16] MEDS ORDERED: SENNA-S 50 MG-81 TAB PO (10:14)
[2019-07-16] MEDS ORDERED: NORCO 325 MG-101 TAB PO (10:34)
--- NOTE | 2019-07-16 11:00 | NUR ---
Patient has been doing well this am. He continues to rate his pain high but is resting comfortably. He has been napping most the morning. No complaints of nausea. He is sitting up in the chair at this time. No other changes at this time. Call light within reach. No other changes at this time.
--- NOTE | 2019-07-16 11:32 | NUR ---
First visit from the health care administrator. No needs right now.
--- NOTE | 2019-07-16 11:35 | NUR ---
Patient will discharge home today with his mother. SW met with patient to review IM. Patient verbalized understanding, signed and did not want a copy.
[2019-07-16 11:59] VITALS: BP 131/70; PULSE 68; TEMP 98.1
[2019-07-16 16:33] VITALS: BP 157/76; PULSE 72; TEMP 98.6
--- NOTE | 2019-07-16 18:10 | NUR ---
Patient is discharging home. He has all his follow up appointments scheduled. He has been given a boot to wear after this appointment with Ortho. Patient has been told several times he can not put any wt on his left foot and do not use boot before appointment. Patient verbalized understanding. Explained he has prescriptions waiting at the pharmacy. Explained he has to take the norco to the pharmacy to get it filled. Patient verbalized understanding. Copies of discharge instructions sent with patient. Patient has been walked out via wheel chair by Raza LANDRY.
== END 2019-07-16 18:10 | disposition home or self-care (01) | DRG 492 ==
LOC: COL.ER 19:33 → ICU 23:13 → SURG 07-15 07:52
PROVIDERS: Emergency Medicine; Hospitalist; Internal Medicine Pulmonary Disease; Nurse Practitioner Family; Orthopaedic Surgery; ADMIT Family Medicine
PROC: 0QHH36Z Insertion of Intramedullary Internal Fixation Device into Left Tibia, Percutaneous Approach (ICD-10-PCS; principal; 2019-07-13 13:00)
DX: S82.302A Unspecified fracture of lower end of left tibia, initial encounter for closed fracture (principal); J96.02 Acute respiratory failure with hypercapnia; J96.01 Acute respiratory failure with hypoxia; I50.22 Chronic systolic (congestive) heart failure; S92.022A Displaced fracture of anterior process of left calcaneus, initial encounter for closed fracture; S92.252A Displaced fracture of navicular [scaphoid] of left foot, initial encounter for closed fracture; S82.402A Unspecified fracture of shaft of left fibula, initial encounter for closed fracture; W18.30XA Fall on same level, unspecified, initial encounter; Y92.009 Unspecified place in unspecified non-institutional (private) residence as the place of occurrence of the external cause; I25.10 Atherosclerotic heart disease of native coronary artery without angina pectoris; I50.9 Heart failure, unspecified; D64.9 Anemia, unspecified; I11.0 Hypertensive heart disease with heart failure; E10.40 Type 1 diabetes mellitus with diabetic neuropathy, unspecified; I45.10 Unspecified right bundle-branch block; Z95.1 Presence of aortocoronary bypass graft; Z95.818 Presence of other cardiac implants and grafts; Z87.891 Personal history of nicotine dependence; Z88.0 Allergy status to penicillin
CPT/HCPCS: 99222-AI; 99231-AI; 99232-AI; 99239; A9284; C1713; J0690; J1815; J2250; J2270; J2704; J3010; J7030; J7120; Q4045

== ENCOUNTER 2019-11-27 12:19 | Inpatient (IN) | payer MEDICARE ==
[2019-11-27] VITALS (439 sets, daily range): BP systolic 100–184; BP diastolic 68–81; PULSE 78–98; TEMP 93.3–98.3; O2SAT 75–100
[~2019-11-27] VITALS: Ht 175.3 cm; Wt 79.9 kg
[~2019-11-27 12:19] MED LIST changes: +ASPIRIN 32325 MG/TAB PO; +IMDUR 30MG30 MG/TAB PO; +NEURONTIN300 MG/CAP PO; +PROTONIX20 MG PO; +SENNA-S 50 MG-81 TAB PO
--- NOTE | 2019-11-27 12:25 | NUR ---
Pt arrives to ICU room 6 acc by EMS. Connected to ear flap binder. Serial VS initiated. Hospitalist and Critical care notified of patient's arrival. BP MAP above 60 Systolic above 100. Levophed held. Art line placed at bedside. Serial labs initiated.
[2019-11-27 13:39] LABS: INR 0.9 (0.8-3.0); PROTHROMBIN TIME 10.2 SECONDS (9.7-12.8)
[2019-11-27 13:49] LABS: TROPONIN-I 0.17 ng/mL (0.000-0.035)
[2019-11-27 13:55] LABS: MAGNESIUM 2.4 mg/dL (1.6-2.3); PHOSPHOROUS 7.3 mg/dL (2.5-4.5)
[2019-11-27 14:01] LABS: ARTERIAL BLD GAS TCO2 CT 5.2; ARTERIAL BLOOD GAS BASE EXCESS -22.4 (-2-2); ARTERIAL BLOOD GAS HCO3 4.8 meq/L (22-26)
[2019-11-27 14:06] LABS: ARTERIAL BLOOD GAS pH 7.13 (7.35-7.45)
[2019-11-27 14:07] LABS: ARTERIAL BLOOD GAS PCO2 14.9 mmHg (35-45)
[2019-11-27 14:26] LABS: LACTIC ACID 5.5 mmol/L (0.4-2.0)
[2019-11-27 15:01] LABS: ALBUMIN 3.7 gm/dL (3.5-5.0); BILIRUBIN,TOTAL 0.7 mg/dL (0.0-1.0); CALCIUM 7.7 mg/dL (8.4-10.2); CREATININE, serum 2.23 (0.66-1.25); POTASSIUM 3.9 mmol/L (3.4-5.0); TOTAL PROTEIN 5.9 gm/dL (6.4-8.2)
[2019-11-27 15:03] LABS: HEMOGLOBIN 10.1 g/dl (13.5-18.0); MEAN CELL VOLUME 105 fl (80.0-100.0); MEAN CORPUSCULAR HEMOGLOBIN 33 pg (27.0-31.0); MEAN CORPUSCULAR HGB CONC 31 g/dl (33.0-37.0); MEAN PLATELET VOLUME 11.5 fl (7.4-10.4); PLATELET COUNT 253 K/mm3 (130-400); REDCELL DISTRIBUTION WIDTH-CV 12.8 % (11.5-14.5)
[2019-11-27 15:06] LABS: HEMATOCRIT 32.6 % (42.0-52.0)
[2019-11-27 16:11] LABS: COLLECTION METHOD CATHETER
[2019-11-27 16:23] LABS: MUCOUS Present /lpf; PH 5 (5-8); SQUAMOUS EPITHELIAL 0-2 /hpf; URINE APPEARANCE Clear; URINE BACTERIA None Seen /hpf; URINE BILIRUBIN Negative (NEGATIVE); URINE BLOOD 3+ (NEGATIVE); URINE COLOR Straw; URINE GLUCOSE 3+ (NEGATIVE); URINE KETONE 2+ (NEGATIVE); URINE LEUKOCYTE ESTERASE Negative (NEGATIVE); URINE NITRATE Negative (NEGATIVE); URINE PROTEIN(semi-quant) 1+ (NEGATIVE); URINE RBC 0-2 /hpf; URINE UROBILINOGEN Negative (NEGATIVE)
[2019-11-27 16:25] LABS: CREATINE KINASE 98 U/L (55-170)
[2019-11-27 16:32] LABS: TRICYCLIC ANTIDEPRESS URINE NEGATIVE
[2019-11-27 16:49] LABS: LACTATE DEHYDROGENASE 5549 U/L (313-618)
--- NOTE | 2019-11-27 17:27 | NUR ---
Returns from CT acc by staff, neurology in to see patient.
--- NOTE | 2019-11-27 18:03 | NUR ---
Results from CT called to RN. Dr Franco notified of diffuse hypoxic brain injury noted on CT.
[2019-11-27 18:23] LABS: LYMPHOCYTE 9 % (20.0-51.0); NEUTROPHILS 85 % (42.0-75.2); PLATELET ESTIMATE NORMAL (NORMAL)
[2019-11-27 18:46] LABS: CREATININE, serum 1.55 (0.66-1.25); POTASSIUM 3.6 mmol/L (3.4-5.0)
[2019-11-27 18:48] LABS: ARTERIAL BLD GAS O2 SATURATION 98.6 % (92-100); ARTERIAL BLD GAS TCO2 CT 10.1; ARTERIAL BLOOD GAS BASE EXCESS -13.2 (-2-2); ARTERIAL BLOOD GAS HCO3 9.6 meq/L (22-26); ARTERIAL BLOOD GAS pH 7.38 (7.35-7.45)
[2019-11-27 18:50] LABS: ARTERIAL BLOOD GAS PCO2 16.5 mmHg (35-45); ARTERIAL BLOOD GAS PO2 251.8 mmHg (80-100)
--- NOTE | 2019-11-27 19:33 | NUR ---
Bedside report provided to oncoming shift. Pt is now opening eyes, stares at wall briefly. Jerks intermittently in response to tactile stimuli. Exhibits decorticate posturing on right but not left side. No pupillary response, no corneal reflex. No gag. Family in to see patient. Await arrival of patient's mother to determine further plan of care.
[2019-11-27 20:13] LABS: CALCIUM 8.4 mg/dL (8.4-10.2); CREATININE, serum 1.42 (0.66-1.25); POTASSIUM 3.6 mmol/L (3.4-5.0)
--- NOTE | 2019-11-27 22:02 | NUR ---
PT'S BP'S WERE HYPERTENSIVE IN THE 200'S CONSISTENTLY SO EICU WAS CALLED. SPOKE TO THE NURSE AND SENT OVER ORDERS TO GIVE SOME IV FENTANYL, BICARB AND START A PRECEDEX GTT.
[2019-11-27 22:45] LABS: CALCIUM 8.4 mg/dL (8.4-10.2); CREATININE, serum 1.18 (0.66-1.25); POTASSIUM 3.4 mmol/L (3.4-5.0)
[2019-11-27 23:47] LABS: CALCIUM 8.4 mg/dL (8.4-10.2); CREATININE, serum 1.09 (0.66-1.25); POTASSIUM 3.8 mmol/L (3.4-5.0)
[2019-11-28] VITALS (624 sets, daily range): BP systolic 51–218; BP diastolic 31–101; PULSE 63–108; TEMP 92.3–93.4; O2SAT 42–100
--- NOTE | 2019-11-28 | NUR ---
WAS AT BEDSIDE AND I SPOKE TO HIM ABOUT THE PATIENTS PRESSURES AND WHAT ORDERED. HE THEN GAVE ME A VERBAL ORDER TO NOT GIVE THE BICARB DUE TO PT ALREADY GETTING TWO FORMS OF BICARB REPLACEMENT, AND HE ORDERED ME TO NOT DO A PRECEDEX DRIP BUT TO INSTEAD START A CARDENE DRIP AND KEEP THE SYSTOLIC BP BELOW 160. HE ALSO ORDERED TO KEEP PT'S TEMPERATURE AT 34 DEGREES CELSIUS.
[2019-11-28 01:37] LABS: CALCIUM 8.9 mg/dL (8.4-10.2); CREATININE, serum 0.95 (0.66-1.25); POTASSIUM 3.2 mmol/L (3.4-5.0)
--- NOTE | 2019-11-28 02:30 | NUR ---
PT'S BLOOD PRESSUSE DROPPED TO 50/30'S SO BOLUSED HER IVF THAT WERE RUNNING (LR) AND SHE GOT ABOUT 1 LITER AND STARTED LEVOPHED DRIP. THEN CALLED EICU AND UPDATED THEM ON THE SITUATION. THE NURSE STAYED ON THE PHONE WITH ME AND THE PATIENTS PRESSURES CAME UP.
[2019-11-28 03:34] LABS: CALCIUM 8.4 mg/dL (8.4-10.2); CREATININE, serum 0.88 (0.66-1.25); POTASSIUM 3.5 mmol/L (3.4-5.0)
[2019-11-28 05:22] LABS: EOS % 0.1 % (0-4.0); GRAN # 12.4 (1.4-6.5); GRAN % 88.9 % (42.2-75.2); LYMPH # 0.8 (1.2-3.4); LYMPH % 5.4 % (20.0-51.0); MEAN CORPUSCULAR HGB CONC 37 g/dl (33.0-37.0); MEAN PLATELET VOLUME 10.3 fl (7.4-10.4); MONO # 0.6 (0.1-0.6); MONO % 4.6 % (1.7-9.3); PLATELET COUNT 250 K/mm3 (130-400); RED BLOOD COUNT 2.97 M/mm3 (4.20-5.60); REDCELL DISTRIBUTION WIDTH-CV 11.9 % (11.5-14.5)
[2019-11-28 05:25] LABS: HEMATOCRIT 26.7 % (42.0-52.0); HEMOGLOBIN 9.8 g/dl (13.5-18.0); MEAN CELL VOLUME 90 fl (80.0-100.0); MEAN CORPUSCULAR HEMOGLOBIN 33 pg (27.0-31.0)
[2019-11-28 05:30] LABS: INR 0.9 (0.8-3.0); PROTHROMBIN TIME 10.8 SECONDS (9.7-12.8)
[2019-11-28 05:32] LABS: ALBUMIN 3.3 gm/dL (3.5-5.0); BILIRUBIN,TOTAL 0.8 mg/dL (0.0-1.0); CALCIUM 8.5 mg/dL (8.4-10.2); CREATININE, serum 0.78 (0.66-1.25); MAGNESIUM 1.8 mg/dL (1.6-2.3); POTASSIUM 3.5 mmol/L (3.4-5.0); TOTAL PROTEIN 5.7 gm/dL (6.4-8.2)
[2019-11-28 05:48] LABS: ARTERIAL BLD GAS O2 SATURATION 98.5 % (92-100); ARTERIAL BLD GAS TCO2 CT 21.1; ARTERIAL BLOOD GAS BASE EXCESS 0.5 (-2-2); ARTERIAL BLOOD GAS HCO3 20.5 meq/L (22-26)
[2019-11-28 05:49] LABS: ARTERIAL BLOOD GAS PCO2 19.8 mmHg (35-45); ARTERIAL BLOOD GAS pH 7.63 (7.35-7.45)
[2019-11-28 07:49] LABS: CALCIUM 8.7 mg/dL (8.4-10.2); CREATININE, serum 0.66 (0.66-1.25); POTASSIUM 3.2 mmol/L (3.4-5.0)
--- NOTE | 2019-11-28 07:55 | NUR ---
GAVE REPORT TO CARIE MORENO AT PT BEDSIDE.
--- NOTE | 2019-11-28 08:30 | NUR ---
Call placed to [facility] due to the possibility of patient having anoxic brain injury. Reviewed medical hx. Given confirmation # [id number]. Will keep in touch with any changes with patient throughout the day.
[2019-11-28 09:37] LABS: ARTERIAL BLD GAS TCO2 CT 21.4; ARTERIAL BLOOD GAS BASE EXCESS -2.2 (-2-2); ARTERIAL BLOOD GAS HCO3 20.5 meq/L (22-26); ARTERIAL BLOOD GAS PCO2 28.7 mmHg (35-45); ARTERIAL BLOOD GAS PO2 178.5 mmHg (80-100); ARTERIAL BLOOD GAS pH 7.47 (7.35-7.45)
[2019-11-28 10:09] LABS: CALCIUM 8.9 mg/dL (8.4-10.2); CREATININE, serum 0.65 (0.66-1.25); POTASSIUM 3.5 mmol/L (3.4-5.0)
--- NOTE | 2019-11-28 10:27 | NUR ---
INSULIN DRIP TURNED TO 2.5 UNITS/HR PER .
[2019-11-28 12:18] LABS: CREATININE, serum 0.6 (0.66-1.25); POTASSIUM 3.9 mmol/L (3.4-5.0)
--- NOTE | 2019-11-28 15:50 | NUR ---
NOTIFIED OF HEAD CT RESULTS. ALSO ASKED REGARDING SERIAL BMP'S. NO NEW ORDERS AT THIS TIME.
--- NOTE | 2019-11-28 18:15 | NUR ---
Call placed to [facility] regarding DPOA wishes that patient be made comfort care. Medical information given to the catering coordinator. A call back was recieved that patient would not be a live donor and to call back after patient has no vital signs. [facility] will call and speak with DPOA. Dariela Grey APRN and Dr. Mak made aware. Also communticated with patients nurse.
[2019-11-28 18:36] LABS: CALCIUM 9.1 mg/dL (8.4-10.2); CREATININE, serum 0.66 (0.66-1.25); POTASSIUM 3.9 mmol/L (3.4-5.0)
--- NOTE | 2019-11-28 18:44 | NUR ---
Pt's DPOA has decideded to extubate pt and make him comfort care. and Dariela ANGUIANO notified.
--- NOTE | 2019-11-28 19:00 | NUR ---
recieved report from CARIE Quintero.
--- NOTE | 2019-11-28 19:15 | NUR ---
PT IS COMFORT CARE AND BEING EXTUBATED.
--- NOTE | 2019-11-28 19:16 | NUR ---
family at bedside and ready to extubate. RT at bedside and extubated at this time.
--- NOTE | 2019-11-28 19:16 | NUR ---
PT SUCTIONED AND EXTUBATED TO RA FOR COMFORT CARE AT THIS TIME, FAMILY AND NURSES AT BEDSIDE.
--- NOTE | 2019-11-28 19:45 | NUR ---
time of confirmed with CARIE Mezawarehouse packaging supervisor.
--- NOTE | 2019-11-28 20:30 | NUR ---
post mortem care done, baca, IJ and all other lines removed and pt cleaned up.
--- NOTE | 2019-11-29 02:50 | NUR ---
THE GENTELMENT FROM THE [facility] [place] ARRIVED TO ENVIRONMENTAL ENGINEERING INTERN THE PATIENT.
--- NOTE | 2019-11-29 03:20 | NUR ---
PT HAS LEFT THE HOSPITAL WITH THE [facility].
== END 2019-11-29 03:20 | disposition expired | DRG 208 ==
LOC: ICU 12:19
PROVIDERS: Internal Medicine Critical Care Medicine; Internal Medicine Nephrology; ADMIT Internal Medicine
PROC: 5A1935Z Respiratory Ventilation, Less than 24 Consecutive Hours (ICD-10-PCS; 2019-11-27)
PROC: 03HY32Z Insertion of Monitoring Device into Upper Artery, Percutaneous Approach (ICD-10-PCS; principal; 2019-11-28)
PROC: 4A133B1 Monitoring of Arterial Pressure, Peripheral, Percutaneous Approach (ICD-10-PCS; 2019-11-28)
PROC: 4A133J1 Monitoring of Arterial Pulse, Peripheral, Percutaneous Approach (ICD-10-PCS; 2019-11-28)
DX: J96.00 Acute respiratory failure, unspecified whether with hypoxia or hypercapnia (principal); E10.10 Type 1 diabetes mellitus with ketoacidosis without coma; J69.0 Pneumonitis due to inhalation of food and vomit; I21.A1 Myocardial infarction type 2; G93.49 Other encephalopathy; N17.9 Acute kidney failure, unspecified; G93.1 Anoxic brain damage, not elsewhere classified; E87.0 Hyperosmolality and hypernatremia; Z66 Do not resuscitate; I46.9 Cardiac arrest, cause unspecified; E87.5 Hyperkalemia; I25.10 Atherosclerotic heart disease of native coronary artery without angina pectoris; I50.9 Heart failure, unspecified; E10.42 Type 1 diabetes mellitus with diabetic polyneuropathy; I48.91 Unspecified atrial fibrillation; J44.9 Chronic obstructive pulmonary disease, unspecified; F17.210 Nicotine dependence, cigarettes, uncomplicated; Z88.0 Allergy status to penicillin; Z95.1 Presence of aortocoronary bypass graft; Z90.49 Acquired absence of other specified parts of digestive tract; Z79.4 Long term (current) use of insulin; Z79.891 Long term (current) use of opiate analgesic; Z79.82 Long term (current) use of aspirin
CPT/HCPCS: A4216; J0610; J0692; J1644; J1815; J2270; J3010; J3480; J7050; J7060; J7120